=== PATIENT | female | born 1995 | race Caucasian/White ===

== ENCOUNTER 2016-09-28 13:21 | Emergency (ER) | payer MEDICAID ==
[~2016-09-28] VITALS: Ht 152.4 cm; Wt 109.0 kg
[2016-09-28 15:47] LABS: BASOPHILS % 1.1 % (0.0-2.0); EOSINOPHILS % 1.2 % (0.0-5.0); HEMATOCRIT. 41.3 % (36.0-48.0); HEMOGLOBIN. 13.8 g/dL (12.0-16.0); LYMPHOCYTES % 33.4 % (20.0-50.0); MEAN CORPUSCULAR HEMOGLOBIN 27.6 pg (28.0-32.0); MEAN CORPUSCULAR HGB CONC 33.4 g/dL (31.0-37.0); MEAN CORPUSCULAR VOLUME 82.6 fL (81.0-99.0); MEAN PLATELET VOLUME 8.4 fl (7.4-10.4); NEUTROPHILS % 57.3 % (40.0-76.0); PLATELET 278 x1000/uL (130-400); RED CELL DISTRIBUTION WIDTH 14.5 % (11.6-14.6); WHITE BLOOD COUNT 8.7 x1000/uL (4.5-11.0)
[2016-09-28 15:52] LABS: CHLORIDE 108 mEq/L (98-107)
[2016-09-28 15:59] LABS: ANION GAP 9; CALCIUM 8.8 mg/dL (8.5-10.1); CARBON DIOXIDE 28 mEq/L (21-32); INDEX HEMOLYSI 1 (1-3); INDEX ICTERIC 1 (1-4); INDEX LIPEMIC 1 (1-3); UREA NITROGEN BLOOD 11 mg/dL (7-21); eGFR > 60 mL/min (>60)
[2016-09-28] MEDS ORDERED: IBUPROFEN 600MG TABLET PO ONE (17:45)
[2016-09-28 18:06] LABS: GLUCOSE URINE NEGATIVE (NEGATIVE); KETONES URINE NEGATIVE (NEGATIVE); LEUKOCYTE ESTERASE URINE 1+ (NEGATIVE); NITRITE URINE NEGATIVE (NEGATIVE); OCCULT BLOOD URINE 3+ (NEGATIVE); PROTEIN URINE 3+ (NEGATIVE); SPECIFIC GRAVITY URINE 1.021 (1.005-1.030); UROBILINOGEN URINE 0.2 E.U./dL (0.2-1.0)
[2016-09-28 18:08] LABS: CLARITY URINE BLOODY (CLEAR); COLOR URINE RED (YELLOW)
[2016-09-28 18:13] LABS: BACTERIA URINE 4+; RBC URINE TNTC /hpf (0-2); SQUAMOUS EPITHELIAL CELL URINE NONE SEEN /lpf (RARE/1+); WBC URINE NONE SEEN /hpf (0-2)
[2016-09-28 19:29] VITALS: BP 122/84
== END 2016-09-28 19:31 | disposition home or self-care (01) ==
LOC: ER 15:55
DX: N93.8 Other specified abnormal uterine and vaginal bleeding (principal); N39.0 Urinary tract infection, site not specified; J45.909 Unspecified asthma, uncomplicated
CPT/HCPCS: 36415; 76830; 76856; 80048; 81001; 81025; 85025; 99285

== ENCOUNTER 2017-09-12 13:43 | Emergency (ER) | payer MEDICAID ==
[~2017-09-12] VITALS: Ht 162.6 cm; Wt 91.0 kg
[2017-09-12 14:20] VITALS: BP 158/101
== END 2017-09-12 15:19 | disposition home or self-care (01) ==
LOC: ER 14:51
DX: L29.9 Pruritus, unspecified (principal); B86 Scabies; J45.909 Unspecified asthma, uncomplicated
CPT/HCPCS: 99283

== ENCOUNTER 2018-07-07 13:05 | Emergency (ER) | payer MEDICAID ==
[~2018-07-07] VITALS: Ht 152.4 cm; Wt 249.5 kg
[2018-07-07 14:26] VITALS: BP 158/94
[2018-07-07] MEDS ORDERED: PAMPRIN (14:26)
== END 2018-07-07 19:40 | disposition left against medical advice (07) ==
LOC: ER 13:26
DX: R10.30 Lower abdominal pain, unspecified (principal); Z53.21 Procedure and treatment not carried out due to patient leaving prior to being seen by health care provider
CPT/HCPCS: 81025